=== PATIENT | female | born 1990 | race Two or more races ===

== ENCOUNTER 2021-07-24 14:58 | Emergency (ER) | payer OTHER, MEDICAID ==
[~2021-07-24] VITALS: Ht 147.3 cm; Wt 59.0 kg
[~2021-07-24 14:58] MED LIST: ARIP2TAB; BENZ0.5T6; CLON0.5T; CLONIPIN; LAMO25TA2; METO25TA36; TRAZ100T3; VENL75CA3; ZIPR60CA24; ZOLP10TA; ZOLP5TAB
[2021-07-24] MEDS ORDERED: ACCU-CHEK COMFORT CURVE STRIP VI ONE (15:30)
[2021-07-24 17:07] LABS: Basophils # (auto) 0 10 ^3/uL (0-0.2); Basophils % (auto) 0.4 % (0.0-2.0); Eosinophils # (auto) 0.2 10 ^3/uL (0-0.8); Eosinophils % (auto) 2.4 % (0.0-7.0); Hematocrit 40.9 % (36.0-46.0); Hemoglobin 13.6 g/dL (12.2-16.2); Lymphocytes # (auto) 2.2 10 ^3/uL (0.4-5.4); Lymphocytes % (auto) 25.9 % (10.0-50.0); Mean Corpuscular Hemoglobin 31.1 pg (28.0-32.0); Mean Corpuscular Hgb Conc. 33.4 g/dL (32.0-36.0); Mean Corpuscular Volume 93.3 fL (80.0-100.0); Monocytes # (auto) 0.6 10 ^3/uL (0-1.3); Monocytes % (auto) 6.9 % (0.0-12.0); Neutrophils # (auto) 5.4 10 ^3/uL (1.6-8.6); Neutrophils % (auto) 64.4 % (37.0-80.0); Nucleated Red Blood Cells % 0.1 %; Red Blood Cells 4.38 10^6/uL (4.0-5.20); Red Cell Distribution Width 12.3 % (11.8-14.3); White Blood Cell 8.3 10^3/uL (4.4-10.8)
[2021-07-24 17:23] LABS: BUN/Creatinine Ratio 18.2; Calcium 8.9 mg/dL (8.5-10.1); Magnesium 2.5 mg/dL (1.6-2.6); Potassium 3.8 mmol/L (3.5-5.1)
[2021-07-24 17:25] LABS: Urine Specific Gravity 1.005 (1.001-1.035)
[2021-07-24 17:26] LABS: Urine Blood Negative /uL (Negative); Urine WBC 40-50 /hpf (0 - 5)
[2021-07-24 17:27] LABS: Urine Bacteria FEW /hpf (None Seen)
[2021-07-24 19:50] VITALS: BP 98/53
== END 2021-07-24 20:51 | disposition home or self-care (01) ==
LOC: ER 14:58
DX: R55 Syncope and collapse (principal); Z79.899 Other long term (current) drug therapy; Z88.0 Allergy status to penicillin
CPT/HCPCS: 36415; 73030; 80048; 81001; 83735; 85025; 93005